=== PATIENT | female | born 1960 | race Caucasian/White ===

== ENCOUNTER → 2016-04-02 | Outpatient (REF) | payer MEDICARE, MEDICAID ==
[~2016-04-02] MED LIST: ALPR1TAB2 PO; ARIP2TAB9 PO; HYDR-3702 PO; INSU100V SQ; INSU100V32 SQ; LISI1TAB10 PO; MIRT15TA PO; POTA-57 PO; ZOLP5TAB PO; vibryd PO
[2016-04-02 12:14] LABS: BASOPHILS % (AUTO) 1 % (0-2); EOSINOPHILS # (AUTO) 0.1 10^3uL; EOSINOPHILS % (AUTO) 2 % (0-4); LYMPHOCYTES # (AUTO) 1.4 X10^3; MEAN CORPUSCULAR HGB CONC 33.3 g/dL (31.0-37.0); MEAN CORPUSCULAR VOLUME 94 FL (80-100); MEAN PLATELET VOLUME 10.1 FL (6.0-9.5); MONOCYTES # (AUTO) 0.4 X10^3; MONOCYTES % (AUTO) 10 % (3-11); NEUTROPHILS # (AUTO) 2.1 X10^3; NEUTROPHILS % (AUTO) 53 % (51-67); PLATELET COUNT 240 10^3uL (150-450); WHITE BLOOD COUNT 3.99 10^3uL (4.0-11.0)
[2016-04-02 12:15] LABS: MEAN CORPUSCULAR HEMOGLOBIN 31.4 PG (26.0-34.0)
[2016-04-02 12:27] LABS: BILIRUBIN,URINE Negative (Negative); CLARITY,URINE Cloudy; COLOR,URINE Yellow; GLUCOSE, URINE (UA) 2+ (Negative); LEUKOCYTE ESTERASE, URINE Negative (Negative); PH,URINE 5.5 (5.0 - 8.0); UROBILINOGEN,URINE 0.2 mg/dL (0.2-1.0)
[2016-04-02 12:47] LABS: ERYTHROCYTE SEDIMENTATION RT* 14 mm/hr (0-23)
[2016-04-02 12:50] LABS: ALBUMIN 3.9 g/dL (3.4-5.0); ANION GAP 13.6 MEQ/L (3-15); CALCULATED IONIZED CALCIUM 4.3 mg/dL (3.8-4.6); TOTAL PROTEIN 6.5 g/dL (6.4-8.5)
== END ==
LOC: LAB 11:27
PROVIDERS: ATTEND Family Medicine
DX: G45.3 Amaurosis fugax (principal); R51 Headache; I10 Essential (primary) hypertension
CPT/HCPCS: 80053; 81003; 84443; 85025; 85652; 86140

== ENCOUNTER → 2016-04-04 | Outpatient (CLI) | payer MEDICARE, MEDICAID ==
--- NOTE | 2016-04-04 09:04 | Diagnostic Imaging Report ---
PROCEDURE: CT head with and without contrast. TECHNIQUE: Multiple contiguous axial images were obtained through the brain before and after the administration of intravenous contrast. INDICATION: Daily headache with visual disturbance. COMPARISON: MRI dated 12/09/2005. FINDINGS: No intracranial hemorrhage. No intracranial mass, mass effect, midline shift, herniation, hydrocephalus, or extra-axial fluid collection. No definite CT evidence of an acute ischemic infarction. Periventricular and subcortical white matter hypodensities are present, most consistent with minimal chronic small vessel white matter ischemic disease. No enhancing mass or vascular malformation. Dominant left vertebral artery. The orbits are unremarkable. The visualized paranasal sinuses are clear. The calvarium and extracalvarial soft tissues are unremarkable. IMPRESSION: No acute intracranial abnormality with minimal chronic small vessel white matter ischemic disease. Dictated by: Dictated on workstation # [id number]
--- NOTE | 2016-04-04 18:41 | Diagnostic Imaging Report ---
INDICATION: Screening mammogram. COMPARISON: January 26, 2015, July 18, 2014, January 31, 2013, and January 18, 2013. The current study was also evaluated with a Computer Aided Detection (CAD) system. FINDINGS: CC, exaggerated CC lateral, and MLO digital mammographic views of the breasts were obtained. The breast tissue is heterogeneously dense, which may lower the sensitivity of mammography. Benign-appearing nodular densities and calcifications are again identified within bilateral breasts. There is no dominant mass, suspicious cluster of microcalcifications or other evidence to indicate malignancy. There has been no significant change from prior mammograms. IMPRESSION: Stable mammogram without evidence of malignancy. ACR BI-RADS Category 2: Benign findings. Result letter will be mailed to the patient. Follow-up: Yearly mammogram NOTE: Keep in mind that about 10% of breast cancers will not be identified on mammography. Further evaluation of a palpable mass not seen on mammography should be based on clinical grounds. Dictated by: Dictated on workstation # [id number]
== END ==
LOC: RAD 07:51
PROVIDERS: ATTEND Family Medicine
DX: R51 Headache (principal); G45.3 Amaurosis fugax; Z12.31 Encounter for screening mammogram for malignant neoplasm of breast
CPT/HCPCS: 70470; G0202; Q9967

== ENCOUNTER → 2016-04-07 | Outpatient (CLI) | payer MEDICARE, MEDICAID ==
[2016-04-07 09:14] LABS: MEAN CORPUSCULAR HEMOGLOBIN 31.1 PG (26.0-34.0); MEAN CORPUSCULAR HGB CONC 33.2 g/dL (31.0-37.0); MEAN PLATELET VOLUME 9.7 FL (6.0-9.5); WHITE BLOOD COUNT 5.63 10^3uL (4.0-11.0)
[2016-04-07 09:30] LABS: ALBUMIN 3.5 g/dL (3.4-5.0); ANION GAP 10.9 MEQ/L (3-15); CALCULATED IONIZED CALCIUM 4.3 mg/dL (3.8-4.6); TOTAL PROTEIN 5.9 g/dL (6.4-8.5)
== END ==
LOC: LAB 08:48
PROVIDERS: ATTEND Surgery
DX: Z98.890 Other specified postprocedural states (principal); E66.01 Morbid (severe) obesity due to excess calories; R74.8 Abnormal levels of other serum enzymes; R94.6 Abnormal results of thyroid function studies
CPT/HCPCS: 36415; 80053; 82306; 82607; 82746; 82977; 83540; 83550; 83970; 84439; 84481; 84590; 85027

== ENCOUNTER → 2016-04-16 | Outpatient (CLI) | payer MEDICARE, MEDICAID ==
[2016-04-16 20:20] LABS: HEPATITIS A ANTIBODY IGM Negative; HEPATITIS B CORE ABY IGM Negative; HEPATITIS B SURFACE ANTIGEN C Negative
[2016-04-16 21:29] LABS: ANTI NUCLEAR ANTIBODY SCREEN Negative (Negative)
== END ==
LOC: LAB 09:10
PROVIDERS: ATTEND Family Medicine
DX: R74.8 Abnormal levels of other serum enzymes (principal); R94.5 Abnormal results of liver function studies
CPT/HCPCS: 36415; 80074; 83516; 86038; 86255

== ENCOUNTER 2016-04-19 18:31 | Emergency (ER) | payer MEDICARE, MEDICAID ==
[~2016-04-19] VITALS: Ht 160 cm; Wt 60.2 kg
--- NOTE | 2016-04-19 19:14 | NUR ---
Patient reports that approx 6 months ago started having non stop migraines along with vision loss in left eye. The headaches stopped when the other symptoms stopped. She had a CT on head 2 weeks, ago.
[2016-04-19 19:39] LABS: BASOPHILS % (AUTO) 1 % (0-2); EOSINOPHILS # (AUTO) 0.1 10^3uL; EOSINOPHILS % (AUTO) 2 % (0-4); LYMPHOCYTES # (AUTO) 2.1 X10^3; MEAN CORPUSCULAR HGB CONC 34.7 g/dL (31.0-37.0); MEAN CORPUSCULAR VOLUME 91 FL (80-100); MEAN PLATELET VOLUME 9.6 FL (6.0-9.5); MONOCYTES # (AUTO) 0.5 X10^3; MONOCYTES % (AUTO) 10 % (3-11); NEUTROPHILS # (AUTO) 2.7 X10^3; NEUTROPHILS % (AUTO) 49 % (51-67); PLATELET COUNT 264 10^3uL (150-450); WHITE BLOOD COUNT 5.48 10^3uL (4.0-11.0)
[2016-04-19 19:40] LABS: MEAN CORPUSCULAR HEMOGLOBIN 31.4 PG (26.0-34.0)
[2016-04-19 19:51] LABS: ALBUMIN 4.1 g/dL (3.4-5.0); ALKALINE PHOSPHATASE 128 U/L (38-126); BUN/CREATININE RATIO 11 (10-20); CALCULATED IONIZED CALCIUM 4.2 mg/dL (3.8-4.6); CREATINE KINASE 27 U/L (30-135); TOTAL PROTEIN 6.8 g/dL (6.4-8.5)
[2016-04-19] MEDS ORDERED: ONDANSETRON 2 MG/ML (Z0FRAN) 2 ML VIAL IV ONE (20:30)
[2016-04-19] MEDS ORDERED: KETOROLAC 30 MG/ML (TORADOL) 1 ML VIAL IV ONE (20:30)
[2016-04-19] MEDS ORDERED: diphenhydrAMINE 50 MG/ML INJ (BENADRYL) IV ONE (20:30)
[2016-04-19] MEDS ORDERED: LORazepam 2 MG/ML (ATIVAN) 1 ML VIAL IV ONE (20:30)
[2016-04-19] MEDS ORDERED: SODIUM CHLORIDE FLUSH 10 ML SYR IV PRN (20:40)
[2016-04-19] MEDS ORDERED: SODIUM CHLORIDE FLUSH 3 ML SYR IV ONE (20:40)
[2016-04-19 22:21] VITALS: BP 148/74
== END 2016-04-19 22:23 | disposition home or self-care (01) ==
LOC: ED 18:35
DX: R42 Dizziness and giddiness (principal); G43.909 Migraine, unspecified, not intractable, without status migrainosus; F41.9 Anxiety disorder, unspecified
CPT/HCPCS: 36415; 71010; 80053; 82550; 82553; 83735; 84484; 85025; 85610; 85730; 93005; 96374; 96375; 99285; J1200; J1885; J2060; J2405; 93010; 99284

== ENCOUNTER → 2016-04-22 | Outpatient (REF) | payer MEDICARE, MEDICAID ==
[2016-04-22 13:38] LABS: BASOPHILS % (AUTO) 1 % (0-2); EOSINOPHILS # (AUTO) 0.1 10^3uL; EOSINOPHILS % (AUTO) 2 % (0-4); LYMPHOCYTES # (AUTO) 2.1 X10^3; MEAN CORPUSCULAR HGB CONC 34.6 g/dL (31.0-37.0); MEAN CORPUSCULAR VOLUME 91 FL (80-100); MEAN PLATELET VOLUME 10.2 FL (6.0-9.5); MONOCYTES # (AUTO) 0.5 X10^3; MONOCYTES % (AUTO) 8 % (3-11); NEUTROPHILS # (AUTO) 2.9 X10^3; NEUTROPHILS % (AUTO) 51 % (51-67); PLATELET COUNT 278 10^3uL (150-450); WHITE BLOOD COUNT 5.66 10^3uL (4.0-11.0)
[2016-04-22 13:42] LABS: ALBUMIN 4.7 g/dL (3.4-5.0); ANION GAP 14.1 MEQ/L (3-15); CALCULATED IONIZED CALCIUM 4.2 mg/dL (3.8-4.6); TOTAL PROTEIN 7.6 g/dL (6.4-8.5)
[2016-04-22 13:45] LABS: MEAN CORPUSCULAR HEMOGLOBIN 31.5 PG (26.0-34.0)
== END ==
LOC: LAB 11:40
PROVIDERS: ATTEND Family Medicine
DX: G43.009 Migraine without aura, not intractable, without status migrainosus (principal); R55 Syncope and collapse; E11.9 Type 2 diabetes mellitus without complications; R79.89 Other specified abnormal findings of blood chemistry; R20.2 Paresthesia of skin
CPT/HCPCS: 80053; 82525; 82533; 83036; 84146; 84439; 84443; 84481; 85025

== ENCOUNTER → 2016-04-25 | Outpatient (CLI) | payer MEDICARE, MEDICAID | LOC: RAD 07:26 | PROVIDERS: ATTEND Family Medicine | DX: R74.8 Abnormal levels of other serum enzymes (principal); K76.89 Other specified diseases of liver | CPT/HCPCS: 76705 ==

== ENCOUNTER → 2016-04-28 | Outpatient (CLI) | payer MEDICARE, MEDICAID | LOC: RAD 15:32 | PROVIDERS: ATTEND Family Medicine | DX: G43.009 Migraine without aura, not intractable, without status migrainosus (principal); R55 Syncope and collapse | CPT/HCPCS: 70553; 93880; A9579 ==

== ENCOUNTER → 2016-05-20 | Outpatient (CLI) | payer MEDICARE, MEDICAID ==
[2016-05-20 09:05] LABS: CALCULATED IONIZED CALCIUM 4.3 mg/dL (3.8-4.6); TOTAL PROTEIN 6.6 g/dL (6.4-8.5)
== END ==
LOC: LAB 08:29
PROVIDERS: ATTEND Surgery
DX: Z98.890 Other specified postprocedural states (principal); E55.9 Vitamin D deficiency, unspecified; E58 Dietary calcium deficiency
CPT/HCPCS: 36415; 80053; 82306; 82607; 83970; 84134